=== PATIENT | male | born 1960 | race Caucasian/White ===

== ENCOUNTER → 2021-02-22 | Outpatient (CLI) | payer BC ==
--- NOTE | 2021-02-22 11:35 | CT ---
EXAMINATION TYPE: CT brain wo con DATE OF EXAM: 02/22/2021 HISTORY: Headaches CT DLP: 1121 mGycm. Automated Exposure Control for Dose Reduction was Utilized. TECHNIQUE: CT scan of the head is performed without contrast. COMPARISON: None. FINDINGS: There is no acute intracranial hemorrhage or midline shift identified. There is mild diff use ventricular and sulcal prominence consistent with diffuse age-related cerebral atrophy. There is minimal low-attenuation in the periventricular white matter consistent with chronic small vessel isc hemic change. Nasal septum deviated to right of midline. No suspicious opacification mastoid air cell s. The globes are intact and the visualized sinuses are clear. IMPRESSION: No acute findings are evident.
== END | disposition home or self-care (01) ==
LOC: RADCTMAIN 11:03
PROVIDERS: ATTEND Family Medicine
DX: R51.9 Headache, unspecified (principal)
CPT/HCPCS: 70450

== ENCOUNTER 2022-10-27 06:27 | Day surgery (SDC) | payer BC ==
[2022-10-26 10:44] VITALS: BMI 30.3
[~2022-10-27 06:27] MED LIST: ALPRAZolam 0.25 MG TAB PO PRN; ALPRAZolam 0.5 MG TAB PO PRN; ASPIRIN 325 MG TAB PO STA; ATORVASTATIN 80 MG TAB PO STA; HEPARIN SODIUM,PORCINE (1 ML) 2,500 UNIT in SODIUM CHLORIDE 0.9% 250 ML IRRIGATION PRN; HEPARIN SODIUM,PORCINE 10,000 UNIT in SODIUM CHLORIDE 0.9% 1,000 ML IRRIGATION PRN; NITROGLYCERIN SL TABS 0.4 MG TAB SUBLINGUAL PRN; SODIUM CHLORIDE 0.9% 1,000 ML in EMPTY BAG 1 BAG IV SCH
[2022-10-27 06:57] VITALS: RESP 18; TEMP 97.8
[2022-10-27] MEDS ORDERED: VERAPAMIL 2.5 MG/ML 2 ML AMP ONE (07:25)
[2022-10-27] MEDS ORDERED: HEPARIN SODIUM 1,000 UN/ML (10ML VL) ONE (07:35)
[2022-10-27] MEDS ORDERED: MIDAZOLAM 2 MG/2 ML VIAL IVP ONE (07:45)
[2022-10-27] MEDS ORDERED: LIDOCAINE 1% INJ 10MG/ML (20 ML MDV) SQ ONE ×2 (07:46→07:58)
[2022-10-27] MEDS ORDERED: LIDOCAINE 2% (PF) 20 MG/ML 5 ML VIAL SQ ONE (07:46)
[2022-10-27] MEDS: HEPARIN SODIUM 1,000 UN/ML (10ML VL) IV ONE ×3 (08:17→08:49)
[2022-10-27] MEDS ORDERED: HEPARIN SODIUM 1,000 UN/ML (10ML VL) IV ONE (08:18)
[2022-10-27] MEDS ORDERED: IOPAMIDOL-370 100ML BTL INJ ONE ×2 (08:36→08:58)
[2022-10-27] MEDS ORDERED: NITROGLYCERIN 1000MCG/10ML SYRINGE INTRACORON ONE (08:41)
[2022-10-27] MEDS ORDERED: CLOPIDOGREL 75 MG TAB PO ONE (08:49)
[2022-10-27] MEDS ORDERED: CLOPIDOGREL 75 MG TAB ONE (08:50)
[2022-10-27] MEDS ORDERED: SODIUM CHLORIDE 0.9% 1,000 ML IV SCH (09:10)
--- NOTE | 2022-10-27 10:01 | CC ---
CARDIAC CATHETERIZATION REPORT PROCEDURES PERFORMED: 1. Left heart catheterization and coronary angiography. 2. Percutaneous transluminal coronary angioplasty and stenting of mid and distal RCA with a drug-eluting stents involving a previous stented area and also adjacent to previous stents 3. Intravascular ultrasound of right coronary artery. PERFORMED BY: Dr. Ksenia Portillo. ANESTHESIA: Moderate conscious sedation time was 60 minutes. The patient was administered Versed. Oxygen saturation, hemodynamics, and EKG were monitored closely. CLINICAL INFORMATION: Mr. Milton Garcia is a 61-year-old gentleman with a known history of CAD, hypertension, and hyperlipidemia. I performed stenting of right coronary artery initially in 2009 and subsequently in July 2014, I performed stenting of mid and distal RCA. The mid RCA lesion was new at that time and the distal RCA lesion was located proximal to the previous stent. I used a 3.5 caliber 12 mm stent in the mid RCA and 2.75 caliber 18 mm stent in the distal RCA at that time in 2014. Because of increasing symptoms of angina, even though the stress test was unremarkable, I recommended coronary angiography and brought in for the procedure electively. PROCEDURE NOTE: Under local anesthesia and strict aseptic precautions, I attempted a right radial access. I was able to get good blood return, but could not advance the wire. However, I switched over to the right femoral. When I took the wire out of the right radial, the wire appeared to be subcutaneous not in the artery and a small fragment was left under the skin. I could not retrieve the entire fragment of the wire, which had disintegrated to some extent. Pressure bandage was applied. I discussed this matter with the patient in detail that there was a small fragment of wire subcutaneous, not affecting the flow at all and that it should be of no consequence, but if it has any issue, we will address it later on. I then turned my attention to the right femoral approach. Using a micropuncture needle technique, a 6-Mongolian introducer was placed under strict aseptic precautions and local anesthesia. Using standard Fei catheters, I performed coronary angiography and the same right catheter was used to check LV pressures. I noted that there was a lesion involving the distal RCA proximal to the previous stent and also in the mid RCA distal to the previous stent. I recommended intervention that was performed in the same setting. LV-gram was not performed. Moderate conscious sedation time was 60 minutes. The patient was administered Versed. Oxygen saturation, hemodynamics, and EKG were monitored closely. FINAL IMPRESSION: The left ventricular end-diastolic pressure was about 12 mmHg without any gradient across aortic valve. CORONARY ANGIOGRAPHY FINDINGS: RIGHT CORONARY ARTERY: Large dominant vessel that was stented in 2009 in the distal area and mid and distal area in 2014. This is a dominant vessel in the midportion and just beyond the stent, there is a 70% narrowing and at the distal stent just before the stent, there is another 80% narrowing. The stented segment appears to be by far okay except in a small area there appears to be some restenoses. So there is some restenosis as involving the distal stent in the proximal portion and also a new lesion before the stent. For the mid stent, there is a 70% stenosis just after the stented segment and the distal aspect of the stent also has some restenosis of more than 60%. The distal branches of RCA are free of significant disease. LEFT MAIN CORONARY ARTERY: Short, patent vessel, free of significant disease trifurcates into LAD, circumflex, and ramus intermedius. Left main is free of significant disease. LEFT ANTERIOR DESCENDING CORONARY ARTERY: Good-caliber vessel calcified quite a bit in the proximal one-third, but no lesions, has about a 30% to 35% narrowing and runs all the way to the apex giving off septal and diagonal branches, curves over the apex to supply the inferoapical portion of left ventricle. LAD is a large distribution vessel, but no significant disease. There is moderate calcification. RAMUS INTERMEDIUS: Small vessel runs laterally of about 2 mm length. Minor irregularities. No significant disease. LEFT POSTERIOR CIRCUMFLEX CORONARY ARTERY: Nondominant vessel, gives off 2 obtuse marginals and then the distal posterolateral branch. Minor irregularities. No significant disease. Left ventriculogram was not performed. FINAL IMPRESSION: This patient has normal filling pressures. No gradient. Right-dominant system with a narrowing of significance involving the mid and distal RCA adjoining the previous stents of about 70% and 80%. The LAD has calcified noncritical disease of 35%. Circumflex is nondominant and 35% narrowing. Ramus is small caliber. LV-gram once not performed. RECOMMENDATIONS: I recommended PCI of RCA and performed this in the same setting. PCI PROCEDURE DETAILS: I used all right guide catheter of 3.5 curve and a run-through wire. Wire was kept in the distal branches of RCA. Predilatation of the distal lesion was performed with a 3.0 caliber 12 mm NC Trek balloon. The same balloon was used to pre-dilate the mid lesion. I deployed a 3.25 caliber 15 mm stent in the distal lesion just before the previous stent telescoping into it and the entire area was dilated with the same balloon. Subsequently, a 4.0 caliber 15 mm Xience stent was deployed in the mid lesion and the lesion was actually distal to the stent, so this was addressed and the proximal end of the stent that I deployed was telescoped into the previous stent. The entire old and new stent were dilated with the same 4.0 stent balloon. Stent was deployed at 14 atmospheres. The patient had chest pain, but very subtle inferior ST-segment changes. I then performed intravascular ultrasound of the distal and proximal lesions and the intravascular ultrasound revealed that the stent was well expanded, well apposed and the maximal diameter was about 3.0 in the distal and a 3.9 in the mid proximal/mid lesions. The stent was very well apposed and fully expanded. The patient received 600 mg of Plavix and he also received aspirin and ACT was about 245 and he received additional 1000 units of heparin. ACT was 245 and he received additional 1000 units of heparin. He also received 600 mg of Plavix. He will be on aspirin and Plavix without interruption for 1 year. Results were discussed with the patient as well as his son and he will be discharged later on today and I will see him in the office on Sunday. KAREN / PINGN: [id number] / MTDD
[2022-10-27] MEDS ORDERED: SODIUM CHLORIDE 0.9% 500 ML 500 ML IV ONE (12:00)
[2022-10-27 16:48] VITALS: BP 134/62; PULSE 82
== END 2022-10-27 16:49 | disposition home or self-care (01) ==
LOC: CATHCVL 06:27
PROVIDERS: ATTEND Internal Medicine Interventional Cardiology
DX: T82.855A Stenosis of coronary artery stent, initial encounter (principal); I77.1 Stricture of artery; I25.10 Atherosclerotic heart disease of native coronary artery without angina pectoris; I10 Essential (primary) hypertension; E78.5 Hyperlipidemia, unspecified; Z95.5 Presence of coronary angioplasty implant and graft; Y84.8 Other medical procedures as the cause of abnormal reaction of the patient, or of later complication, without mention of misadventure at the time of the procedure
CPT/HCPCS: 92978; 93458; C9600; C1760; C1769 ×3; C1887; C1894 ×2; C1753; C1874 ×2; C1725; J2250; J2001 ×2; J1644; Q9967; J2305

== ENCOUNTER → 2023-02-27 | Day surgery (SDC) | payer BC ==
[2023-02-22 13:01] VITALS: BMI 30.2
[~2023-02-27] MED LIST changes: -ATORVASTATIN 80 MG TAB PO STA; +CLOPIDOGREL 75 MG TAB ONE; +HEPARIN SODIUM 1,000 UN/ML (10ML VL) ONE; -HEPARIN SODIUM,PORCINE (1 ML) 2,500 UNIT in SODIUM CHLORIDE 0.9% 250 ML IRRIGATION PRN; -HEPARIN SODIUM,PORCINE 10,000 UNIT in SODIUM CHLORIDE 0.9% 1,000 ML IRRIGATION PRN; +HYDROmorphone 0.5 MG/0.5 ML SYRINGE IVP ONE; +IOPAMIDOL-370 100ML BTL INJ ONE; +LIDOCAINE 1% INJ 10MG/ML (20 ML MDV) ONE; +LIDOCAINE 1% INJ 10MG/ML (20 ML MDV) SQ ONE; +MIDAZOLAM 2 MG/2 ML VIAL IVP ONE; +NITROGLYCERIN 1000MCG/10ML SYRINGE INTRACORON ONE; +SODIUM CHLORIDE 0.9% 1,000 ML IV SCH; +SODIUM CHLORIDE 0.9% 500 ML 500 ML IV ONE; +VERAPAMIL 2.5 MG/ML 2 ML AMP ONE
[2023-02-27 07:39] VITALS: RESP 16; TEMP 98.3
--- NOTE | 2023-02-27 10:47 | CC ---
CARDIAC CATHETERIZATION REPORT DATE OF SERVICE: 02/27/2023. PROCEDURE: Left heart catheterization and coronary angiography. PERFORMED BY: Dr. Ksenia Portillo. ANESTHESIA: Moderate conscious sedation. Time was 29 minutes. He was administered Versed and Dilaudid. Oxygen saturation, hemodynamics, and EKG were monitored closely. CLINICAL INFORMATION: Mr. Milton Garcia is a 62-year-old gentleman with a known history of calcified coronary arteries with multiple interventions of the RCA. The last intervention was performed on October 27, 2022 with a stenting in the mid and distal RCA with a 4.0 and 3.25 caliber drug-eluting stents and intravascular ultrasound. He has been having symptoms suggestive of angina. Therefore, I advised cardiac catheterization. He was also concerned he may have restenoses because he has had symptoms of chest tightness that seemed to occur randomly, not necessarily with activity. Risks, benefits, options, and rationale were explained. PROCEDURE NOTE: Under local anesthesia and strict aseptic precautions, a 6-Welsh introducer was placed in the right femoral artery. Using standard Fei catheters, I performed coronary angiography and the same right catheter was used to check LV pressure, but LV-gram was not performed. The sheath was taken out, and Angio-Seal device used to secure hemostasis and he was sent to the room in stable condition. The findings were discussed in detail with the patient and his granddaughter. Continued medical therapy with risk factor modification is advised. CARDIAC CATH FINDINGS: The left ventricular end-diastolic pressure was 10 mmHg without any gradient across the aortic valve. CORONARY ANGIOGRAPHIC FINDINGS: RIGHT CORONARY ARTERY: Dominant vessel that was stented on October 27, 2022. Widely patent in the mid and distal portions. Minor irregularities. No significant disease of the dominant vessel. Widely patent at the areas of stenting in the mid and distal portions. LEFT MAIN CORONARY ARTERY: Short patent vessel. No significant disease. Bifurcates into LAD and circumflex. LEFT ANTERIOR DESCENDING CORONARY ARTERY: Good caliber vessel, extends along the anterior wall, midportion has about 40% to 50% calcified stenosis, unchanged from before, a fair amount of myocardium has minor irregularities, gives off septal and diagonal branches. LEFT POSTERIOR CIRCUMFLEX CORONARY ARTERY: Nondominant vessel, has a tortuous 1st obtuse marginal that has about a 50% to 55% eccentric narrowing. There is actually, what appears to be, somewhat of a bridging of this vessel as well. The lesion is about 50% to 55% and unchanged from the previous study in October and mildly worse compared to the study from 2014. This does not appear to be a significant lesion. The rest of the circumflex has minor irregularities. There is also a high first obtuse marginal that almost looks like a ramus, has about a 40% narrowing. LV-gram was not performed. FINAL IMPRESSION: This patient has normal filling pressures. No gradient. A widely patent RCA in the mid and distal portion and this was stented in October 2022. Mid LAD has a 40% to 50% calcified lesion unchanged. First obtuse marginal has about a 50% to 55% lesion unchanged from before. RECOMMENDATIONS: Findings were discussed with the patient and his granddaughter. We will continue aggressive medical therapy with risk factor modification and consider stress testing down the road. He will be discharged later on today if he remains stable. We will continue same medications including dual antiplatelet therapy and statins and beta- blockers. MMODL / IJN: [id number] /
[2023-02-27 19:17] VITALS: BP 153/88; PULSE 78
== END ==
LOC: CATHCVL 06:23
PROVIDERS: ATTEND Internal Medicine Interventional Cardiology
DX: I25.10 Atherosclerotic heart disease of native coronary artery without angina pectoris (principal); I10 Essential (primary) hypertension; E78.5 Hyperlipidemia, unspecified; F17.210 Nicotine dependence, cigarettes, uncomplicated; Z79.82 Long term (current) use of aspirin; Z79.899 Other long term (current) drug therapy
CPT/HCPCS: 93458; 99152; 99153; C1760; C1769 ×2; C1894; J2250; J2001; J1170; Q9967; J2305